=== PATIENT | female | born 1985 | race Hispanic/Latino ===

== ENCOUNTER → 2023-08-27 11:03 | Outpatient (REF) | payer OTHER, SELFPAY ==
[2023-08-27 11:29] LABS: % Basophils 0.2 % (0-2); % Eosinophils 0.7 % (0-6); % Immature Granulocytes 0.4 % (0-0.5); % Lymphocytes 37.2 % (20.5-51.1); % Monocytes 5.8 % (1.7-9.3); % Neutrophils 55.7 % (42.2-75.2); Absolute Lymphocytes 1.7 10^3/uL (1.2-3.4); Absolute Monocytes 0.3 10^3/uL (0.1-0.6); Absolute Neutrophils 2.5 10^3/uL (1.4-6.5); Hemoglobin 12.9 g/dL (12.0-16.0); Mean Corp Hgb Conc. 33.1 g/dL (33.0-37.0); Mean Corpuscular Hgb 29.9 pg (27.0-31.0); Mean Corpuscular Volume 90.3 fL (81.0-99.0); Mean Platelet Volume 10.8 fL (7.4-10.4); Nucleated Red Blood Cells % 0 %; Platelet Count 193 10^3/uL (130-400); Red Blood Cell Count 4.32 10^6/uL (4.20-5.40); Red Cell Dist. Width 11.9 % (11.5-14.5); White Blood Cell Count 4.5 10^3/uL (4.8-10.8)
[2023-08-27 12:28] LABS: ALT (SGPT) 27 U/L (0-35); AST (SGOT) 25 U/L (14-36); Albumin 4.5 g/dl (3.5-5.0); Alkaline Phosphatase 72 U/L (38-126); Blood Urea Nitrogen 12 mg/dl (7-17); Calcium 9.3 mg/dl (8.4-10.2); Carbon Dioxide 24 mmol/L (22-30); Chloride 105 mmol/L (98-107); Glucose 96 mg/dl (70-99); HDL Cholesterol 42 mg/dl; LDL Cholesterol, Calculated 101 mg/dl; Potassium 5.2 mmol/L (3.5-5.1); Sodium 138 mmol/L (135-145); Total Bilirubin 0.7 mg/dl (0.2-1.3); Total Cholesterol 158 mg/dl (50-199); Total Protein 7.5 g/dl (6.3-8.2); Triglyceride 77 mg/dl (10-149); Very Low Density Lipoprotein 15 mg/dl (0-30); eGFR > 60.00
[2023-08-27 12:37] LABS: Vitamin D, 25-OH*** 17.6 ng/mL (30-80)
[2023-08-27 12:51] LABS: TSH Reflex To Free T4 2.47 uIU/ml (0.47-4.68)
[2023-08-27 13:23] LABS: Glycohemoglobin (HgbA1c) 5.9 % (4.0-5.6)
== END ==
LOC: CLINIC 11:03
PROVIDERS: ATTENDING PHYSICIAN Nurse Practitioner Acute Care
DX: Z00.00 Encounter for general adult medical examination without abnormal findings (principal)
CPT/HCPCS: 36415; 80053; 80061; 82306; 83036; 84443; 85025

== ENCOUNTER → 2023-09-01 14:13 | Outpatient (REF) | payer OTHER, SELFPAY | LOC: WDC 14:13 | PROVIDERS: ATTENDING PHYSICIAN Nurse Practitioner Acute Care | DX: N64.4 Mastodynia (principal) | CPT/HCPCS: 77062; 77066 ==

== ENCOUNTER → 2024-06-24 10:25 | Outpatient (REF) | payer OTHER, SELFPAY ==
[2024-06-24 10:56] LABS: % Basophils 0.4 % (0-2); % Immature Granulocytes 0.2 % (0-0.5); % Lymphocytes 38.2 % (20.5-51.1); % Monocytes 5.3 % (1.7-9.3); % Neutrophils 53.9 % (42.2-75.2); Absolute Eosinophils 0.1 10^3/uL (0-0.7); Absolute Lymphocytes 1.7 10^3/uL (1.2-3.4); Absolute Monocytes 0.2 10^3/uL (0.1-0.6); Absolute Neutrophils 2.5 10^3/uL (1.4-6.5); Hematocrit 37.7 % (37.0-47.0); Hemoglobin 12.5 g/dL (12.0-16.0); Mean Corp Hgb Conc. 33.2 g/dL (33.0-37.0); Mean Corpuscular Volume 90.6 fL (81.0-99.0); Mean Platelet Volume 10.7 fL (7.4-10.4); Nucleated Red Blood Cells % 0 %; Platelet Count 188 10^3/uL (130-400); Red Blood Cell Count 4.16 10^6/uL (4.20-5.40); Red Cell Dist. Width 12.1 % (11.5-14.5); White Blood Cell Count 4.6 10^3/uL (4.8-10.8)
[2024-06-24 11:20] LABS: Glycohemoglobin (HgbA1c) 5.5 % (4.0-5.6)
[2024-06-24 11:34] LABS: ALT (SGPT) 18 U/L (0-35); AST (SGOT) 19 U/L (14-36); Albumin 4.3 g/dl (3.5-5.0); Alkaline Phosphatase 67 U/L (38-126); Blood Urea Nitrogen 9 mg/dl (7-17); Carbon Dioxide 26 mmol/L (22-30); Chloride 108 mmol/L (98-107); Glucose 103 mg/dl (70-99); Potassium 4.7 mmol/L (3.5-5.1); Sodium 141 mmol/L (135-145); Total Bilirubin 0.6 mg/dl (0.2-1.3); Total Protein 7.2 g/dl (6.3-8.2); eGFR > 60.00
== END ==
LOC: CLINIC 10:25
PROVIDERS: ATTENDING PHYSICIAN Nurse Practitioner Family
DX: G44.52 New daily persistent headache (NDPH) (principal); R73.03 Prediabetes
CPT/HCPCS: 36415; 80053; 82652; 83036; 85025

== ENCOUNTER 2024-09-06 14:14 | Emergency (ER) | payer SELFPAY ==
[2024-09-06 14:18] VITALS: BP 148/95
[2024-09-06 14:40] LABS: % Basophils 0.2 % (0-2); % Immature Granulocytes 0.2 % (0-0.5); % Monocytes 3.3 % (1.7-9.3); % Neutrophils 76.3 % (42.2-75.2); Absolute Lymphocytes 1.2 10^3/uL (1.2-3.4); Absolute Monocytes 0.2 10^3/uL (0.1-0.6); Absolute Neutrophils 4.6 10^3/uL (1.4-6.5); Hematocrit 36.3 % (37.0-47.0); Hemoglobin 12.7 g/dL (12.0-16.0); Mean Corpuscular Hgb 30.5 pg (27.0-31.0); Mean Corpuscular Volume 87.3 fL (81.0-99.0); Mean Platelet Volume 10.6 fL (7.4-10.4); Nucleated Red Blood Cells % 0 %; Platelet Count 204 10^3/uL (130-400); Red Blood Cell Count 4.16 10^6/uL (4.20-5.40); Red Cell Dist. Width 12.1 % (11.5-14.5); White Blood Cell Count 6.1 10^3/uL (4.8-10.8)
[2024-09-06 14:54] LABS: HCG, Serum Qualitative Screen Negative
[2024-09-06 14:57] LABS: ALT (SGPT) 23 U/L (0-35); AST (SGOT) 21 U/L (14-36); Albumin 4.8 g/dl (3.5-5.0); Alkaline Phosphatase 63 U/L (38-126); Blood Urea Nitrogen 9 mg/dl (7-17); Calcium 9.2 mg/dl (8.4-10.2); Carbon Dioxide 24 mmol/L (22-30); Chloride 111 mmol/L (98-107); Glucose 110 mg/dl (70-99); Potassium 4.6 mmol/L (3.5-5.1); Sodium 142 mmol/L (135-145); Total Bilirubin 0.5 mg/dl (0.2-1.3); Total Protein 7.9 g/dl (6.3-8.2); eGFR > 60.00
--- NOTE | 2024-09-06 17:51 | ED.GENMED ---
History of Present Illness
General
Chief Complaint: Dizziness
Source: patient
Exam Limitations: none
Time Seen by Provider: 09/06/24 17:49
Nursing documentation reviewed up to this point in time: agreed with
History of Present Illness
History of Present Illness:
38-year-old female presents emergency room due to dizziness for the past 10 days she took Tylenol thinking it might help. It did not. She denies any chest pain fevers or shortness of breath. The dizziness lasts brief episodes from 30 seconds to a
minute and is accompanied by vomiting. It is worse when she turns her head or goes over bumps in the car
Past History
Past History
ED Past Medical History: None
ED Past Surgical History: None
Social History
Tobacco: Non-smoker
Alcohol: None
Drug: None
Personal:
Living: with family
Review of Systems
Review of Systems
Allergies reviewed?: Yes
All Other Systems: Not applicable
Constitutional: Reports no symptoms
EENT: Reports no symptoms
Respiratory: Reports no symptoms
Cardiac: Reports no symptoms; Denies chest pain
ABD/GI: Reports vomiting
: Reports no symptoms
Musculoskeletal: Reports no symptoms
Skin: Reports no symptoms
Neurological: Reports dizzy; Denies weakness
Endocrine: Reports no symptoms
Hematologic/Lymphatic: Reports no symptoms
Psychiatric: Reports no symptoms
Phy Exam
Physical Exam
Physical Exam:
Physical Exam
General: no apparent distress, not acutely ill
Neck: supple. no meningeal signs. normal posterior pharynx
Heart: s1/s2 regular rate and rhythm, no murmur. equal radial
pulses.
HEENT: Pupils equal round reactive to light, EOMI, rightward nystagmus, worse with Nicole-Hallpike maneuver
Lungs: no acute respiratory distress. clear bilaterally
Abdomen: normal bowel sounds. not tender. no CVAT
Neuro: alert and oriented. no focal neurological deficits cranial nerves II through XII intact
Skin: no rash
Psychiatric: well kept. interactive and cooperative
Extremities: no edema. no calf tenderness. negative homans. good distal pulses
Course
Orders/Labs/Results
Orders:
Orders
09/06/24 14:22
CT Head W/o Iv Contrast Urgent
Comment:
Reason For Exam: progressive dizzines x 10 days
Test Result ONCE
09/06/24 14:32
Complete Blood Count/With Diff Urgent
Comprehensive Metabolic Panel Urgent
HCG, Serum Qualitative Screen Urgent
09/06/24 17:52
Electrocardiogram (*1) Stat
Reason for Study: Vertigo / Dizzy
Electrocardiogram (*1) Urgent
EKG- Treatment ONCE
Abnormal Lab Results
09/06/24
14:32
RBC 4.16 L 10^6/uL
(4.20-5.40)
Hct 36.3 L %
(37.0-47.0)
MPV 10.6 H fL
(7.4-10.4)
Neutrophils % 76.3 H %
(42.2-75.2)
Lymphocytes % 20.0 L %
(20.5-51.1)
Chloride 111 H mmol/L
(98-107)
Glucose 110 H mg/dl
(70-99)
09/06/24 14:32
09/06/24 14:32
Vital Signs
Initial and Last Documented VS:
Initial Vital Signs
Temp Pulse Resp BP Pulse Ox
98.2 F 78 18 148/95 98
09/06/24 14:18 09/06/24 14:18 09/06/24 14:18 09/06/24 14:18 09/06/24 14:18
Last Documented Vital Signs
Temp Pulse Resp BP Pulse Ox
98.2 F 78 18 148/95 98
09/06/24 14:18 09/06/24 14:18 09/06/24 14:18 09/06/24 14:18 09/06/24 17:53
MDM/Problems Addressed
Differential Diagnosis Includes:
Intracranial tumor, vertigo
MDM/Problems Addressed:
38-year-old female with vertigo. No signs of intracranial hemorrhage or CVA treat with meclizine and give prescription for physical therapy.
*Radiology
Radiology exam reviewed: radiology read reviewed (CT head normal)
*Pulse Oximetry
SaO2: 98
Oxygen Mode of Delivery: Room air
Patient hypoxic: no
*EKG
Interpreted by ED Provider?: Yes
EKG Intrepretation Date: 09/06/24
EKG Intrepretation Time: 17:57
Interpretation: abnormal
Comparison EKG: no comparison EKG present
Heart Rate: 58
Rate: bradycardiac
Rhythm: sinus
[place]: normal axis
Interval: normal interval
QRS Pattern: normal QRS
Ischemia: no ischemia
*Manager Payment Interpretation
Rate: Manager Payment- N/A
*Critical Care Note
Total Time (30-74mins, 75-104mins- exclusive of procedures): Not Applicable
Patient Management
Social determinants of health affecting care: Living situation, Poor outpatient follow-up and Strong social support
Escalation/DeEscalation of care consider admission/obs:
admit not indicated
ED Attending Note
-
Portions of this chart may have been created with voice recognition software.� Occasional wrong word or��sound alike� substitutions may have occurred due to the inherent limitations of voice recognition software.
Discharge Plan
Departure
Patient Disposition: Home (Routine Discharge)
Date of Disposition: 09/06/24
Time of Disposition: 18:48
Patient with high blood pressure during this ER visit?: Yes
Condition: Good
Discharge Problem:
Vertigo
Instructions: Vertigo (a Type of Dizziness) (DC), Dizziness, BLOOD PRESSURE
Prescriptions:
New
meclizine 25 mg tablet
25 mg PO TID PRN (Reason: dizziness) Qty: 10 0RF
No Action
ondansetron 4 MG tablet,disintegrating
4 mg PO Q8HPRN PRN (Reason: Nausea/Vomiting) Qty: 10 0RF
Referrals:
UNKNOWN - PT DOES,NOT KNOW [Family Provider]
Activity Restrictions/Additional Instructions:
Dae seguimiento con atenci�n primaria. Regrese si tiene alguna inquietud. Britton fisioterapia en 3-10 d�as. Utilice meclizina seg�n sea necesario para los mareos.
Interventions
Interventions:
*General Assessment Last Done: 09/06/24 17:42
*ED- Fall Risk Assessment Last Done: 09/06/24 17:42
ED- Neurological Assessment Last Done: 09/06/24 17:42
ED- Cardiac Assessment Last Done: 09/06/24 17:42
Discharge Date and Time
Print Language: TONGAN
[2024-09-06] MEDS: ANTIVERT 25 MG PO (18:55)
[2024-09-06 19:03] VITALS: BP 140/72
== END 2024-09-06 19:16 | disposition home or self-care (01) ==
LOC: EMR 14:14
PROVIDERS: Emergency Medicine; EMERGENCY PHYSICIAN Emergency Medicine
DX: R42 Dizziness and giddiness (principal)
CPT/HCPCS: 99284; 70450; 80053; 84703; 85025; 93005